=== PATIENT | male | born 1960 | race Caucasian/White ===

== ENCOUNTER → 2021-05-26 | Day surgery (SDC) | payer OTHER ==
[~2021-05-26] MED LIST: GLUCAGON FOR INJ 1 MG VIAL ONE; HYOSCYAMINE SULFATE 0.5 MG/ML INJ ONE; LIDOCAINE HCL 2% LOCAL INJ 5 ML SDV VIAL INJ ONE; MIDAZOLAM HCL 2 MG/2 ML VIAL ONE; PROPOFOL IV EMULSION 10 MG/ML 20 ML VIAL ONE
[2021-05-26 16:00] VITALS: BP 110/80
== END | disposition home or self-care (01) ==
LOC: OR 12:49
PROVIDERS: ATTEND Internal Medicine Gastroenterology
DX: K57.30 Diverticulosis of large intestine without perforation or abscess without bleeding (principal); D12.2 Benign neoplasm of ascending colon; K52.9 Noninfective gastroenteritis and colitis, unspecified; K63.5 Polyp of colon; K62.89 Other specified diseases of anus and rectum; K64.8 Other hemorrhoids; Z86.010 Personal history of colon polyps; Z87.442 Personal history of urinary calculi; Z01.810 Encounter for preprocedural cardiovascular examination; Z01.812 Encounter for preprocedural laboratory examination; Z20.822 Contact with and (suspected) exposure to COVID-19
CPT/HCPCS: 45380; 45385; 88305; 93005; J1610; J1980; J2001; J2250; J2704; U0002